=== PATIENT | female | born 1980 | race Caucasian/White ===

== ENCOUNTER 2018-02-21 19:10 | Emergency (ER) | payer MEDICAID ==
[2018-02-21 19:18] VITALS: BP 141/94
--- NOTE | 2018-02-21 19:31 | EDPHY ---
H & P Time Seen by Provider: 02/21/18 19:20 HPI/ROS: CHIEF COMPLAINT: Cat bite to left ear HISTORY OF PRESENT ILLNESS: 37-year-old immunocompetent female with up-to-date tetanus, was bitten by her cat to her left external ear 2 days ago and is complaining of erythema and pain. Saw her PCP yesterday, piercings were left in , started on Augmentin. In the ER complaining of erythema and pain. No otorrhea. No fever chills. No nausea or vomiting. No headache. No adenopathy. PHYSICAL EXAM (Prior to examination, patient consented to physical exam, hands were washed and my usual and customary physical exam procedures followed) 1) GENERAL: Well-developed, well-nourished, alert and oriented. Appears to be in no acute distress. 2) HEAD: Normocephalic 3) HEENT: sclera anicteric . Left external ear, to piercings in the helix, 1 the lobule. Noted erythema and induration at same locations. No otorrhea. EACs clear. No corresponding adenopathy. No crepitus. 4) LUNGS: Breathing comfortably. Smoking Status: Never smoked Constitutional: Initial Vital Signs Temperature (C) 36.9 C 02/21/18 19:15 Heart Rate 83 02/21/18 19:15 Respiratory Rate 18 02/21/18 19:15 Blood Pressure 141/94 H 02/21/18 19:15 O2 Sat (%) 96 02/21/18 19:15 O2 Delivery Mode Room Air Allergies/Adverse Reactions: amoxicillin Allergy (Verified 02/21/18 19:19) Iodinated Contrast- Oral and IV Dye [Iodinated Contrast Media - IV Dye] Allergy (Verified 02/21/18 19:15) Home Medications: Medication Instructions Recorded clonazePAM [klonoPIN (RX)] 1.5 mg DAILY 01/11/15 Amoxicillin/Clavulanate Pot 875 mg PO BID #14 tab 02/21/18 [Augmentin 875 mg tab] MDM/Departure - MDM Procedures: Procedure: Removal of 3 or radicular piercing Indication: Cat bite cellulitis Patient consented to removal of 3 areas, 1 in her lobule and 2 in her helix. Using forceps I was able to remove these and return them to the patient. Patient tolerated procedure well ED Course/Re-evaluation: The patient has cat bite cellulitis to the left external ear. She had [address] which she was unable to remove herself. I removed these in the ER I recommend she keep them out. She has listed amoxicillin allergy . Her PCP prescribed her Augmentin yesterday which she has been on for 24 hr. Today is Monday. I recommend follow up with ENT tomorrow or Monday.. She has no evidence of deep space infection, auricular hematoma or abscess at this time. She has no crepitus. Doubt necrotizing fasciitis. No evidence of otitis externa. Care of patient under supervision of secondary supervising physician Dr Flores with whom I discussed case.. - Depart Disposition: Home, Routine, Self-Care Clinical Impression: Cat bite left ear Condition: Good Instructions: Animal Bite (ED) Prescriptions: Amoxicillin/Clavulanate Pot [Augmentin 875 mg tab] 875 mg PO BID #14 tab Referrals: Adi Guy MD [Medical Doctor] - 02/22/18
[2018-02-21] MEDS ORDERED: AMOXICILLIN/CLAVULANATE POT 875/125 MG TAB PO ONE (19:32)
== END 2018-02-21 19:47 | disposition home or self-care (01) ==
DX: S01.352A Open bite of left ear, initial encounter (principal); W55.01XA Bitten by cat, initial encounter; Y92.9 Unspecified place or not applicable; Y93.9 Activity, unspecified; Y99.9 Unspecified external cause status